=== PATIENT | male | born 2000 | race Hispanic/Latino ===

== ENCOUNTER 2024-07-29 01:13 | Emergency (ER) | payer SELFPAY | END 2024-07-29 01:42 | disposition home or self-care (01) | LOC: CSHERS 01:13 | DX: Z04.1 Encounter for examination and observation following transport accident (principal); Z02.89 Encounter for other administrative examinations; V89.2XXA Person injured in unspecified motor-vehicle accident, traffic, initial encounter | CPT/HCPCS: 36415; 99284 ==